=== PATIENT | male | born 1955 | race Caucasian/White ===

== ENCOUNTER 2017-08-28 05:36 | Outpatient (CLI) | payer BC ==
[~2017-08-28] VITALS: Ht 172.7 cm; Wt 90.7 kg
[~2017-08-28 05:36] MED LIST: LISI20TA PO; SIMV40TA4 PO
[2017-08-28] MEDS ORDERED: SIMV40TA4 PO (15:23)
== END 2017-08-28 15:24 ==
LOC: PREOP 05:36
PROVIDERS: ATTEND Surgery
DX: Z01.818 Encounter for other preprocedural examination (principal); K63.5 Polyp of colon

== ENCOUNTER 2017-09-04 09:23 | Day surgery (SDC) | payer BC ==
[~2017-09-04] VITALS: Ht 172.7 cm; Wt 90.7 kg
--- OUTSIDE RECORDS SUMMARY | 2017-09-04 09:38 | XMS REPORT ---
Author Author Yen Alvarado Organization [facility] Address [address] [place], [place] [id number] Care Team Providers Care Bowl Sander Name Role Phone Yen Alvarado PCP Unavailable Allergies and Adverse Reactions Name Reaction Notes NO KNOWN DRUG ALLERGIES Plan of Treatment Not available. Medications Active Name Start Date Estimated Completion Date SIG Comments lisinopril 20 mg oral tablet take 1 tablet (20 mg) by oral route once daily simvastatin 20 mg oral tablet take 1 tablet (20 mg) by oral route once daily in the evening Problem List Description Status Onset Hyperlipidemia Active Hypertension Active Vital Signs Date Time BP-Sys(mm[Hg] BP-Sheba(mm[Hg]) HR(bpm) RR(rpm) Temp WT HT HC BMI BSA BMI Percentile O2 Sat(%) 05/03/2016 1:46:00 PM 134 mmHg 72 mmHg 75 bpm 18 rpm 97.8 F 190.125 lbs 68 in 28.91 kg/m2 2.03 m2 98 % 05/13/2015 3:03:00 PM 124 mmHg 74 mmHg 71 bpm 18 rpm 96.7 F 195.5 lbs 68 in 29.7254 kg/m 2.0627 m 99 % 05/19/2014 9:56:00 AM 115 mmHg 82 mmHg 74 bpm 20 rpm 97.8 F 197 lbs 68 in 29.95 kg/m2 2.07 m2 94 % Social History Name Description Comments Tobacco Former smoker Alcohol rare History of Procedures Date Ordered Description Order Status 05/13/2015 3:13 PM URINALYSIS AUTO W/O SCOPE Reviewed 05/03/2016 2:13 PM URINALYSIS AUTO W/O SCOPE Reviewed 05/19/2014 10:00 AM URINALYSIS AUTO W/O SCOPE Reviewed Results Summary Data and Description Results 05/19/2014 10:00 AM Bilirub Ur Ql Strip negative Glucose Ur-sCnc negative Hgb Ur Ql Strip negative Ketones Ur Ql Strip negative Nitrite Ur Ql Strip negative pH Ur-LsCnc 5.5 Prot Ur Ql Strip 30 Sp Gr Ur Qn >=1.030 Urobilinogen Ur-mCnc 0.2 WBC Est Ur Ql Strip negative 05/13/2015 3:13 PM Clarity Ur clear Color Ur lt yellow Glucose Ur-sCnc neg Bilirub Ur Ql Strip neg Ketones Ur Ql Strip neg Sp Gr Ur Qn <=1.005 Hgb Ur Ql Strip beg pH Ur-LsCnc 6.0 Prot Ur Ql Strip neg Urobilinogen Ur-mCnc 0.2 E.U./dL Nitrite Ur Ql Strip neg WBC Est Ur Ql Strip neg 05/03/2016 2:13 PM Clarity Ur clear Color Ur yellow Glucose Ur-sCnc neg Bilirub Ur Ql Strip neg Ketones Ur Ql Strip neg Sp Gr Ur Qn 1.015 Hgb Ur Ql Strip neg pH Ur-LsCnc 6.0 Prot Ur Ql Strip neg Urobilinogen Ur-mCnc 0.2eu/dl Nitrite Ur Ql Strip neg WBC Est Ur Ql Strip neg History Of Immunizations Not available. 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
--- OUTSIDE RECORDS SUMMARY | 2017-09-04 09:38 | XMS REPORT ---
Author Author Yen Alvarado Organization [facility] Address [address] [place], [place] [id number] Care Team Providers Care Complaint Adjuster Name Role Phone Yen Alvarado PCP Unavailable [...] HC BMI BSA BMI Percentile O2 Sat(%) 05/13/2015 3:03:00 PM 124 mmHg 74 mmHg 71 bpm 18 rpm 96.7 F 195.5 lbs 68 in 29.73 kg/m2 2.06 m2 99 % 05/19/2014 9:56:00 AM 115 mmHg 82 mmHg 74 bpm 20 rpm 97.8 F 197 lbs 68 in 29.9534 kg/m 2.0706 m 94 % Social History Name Description Comments Tobacco Former smoker Alcohol rare History of Procedures Date Ordered Description Order Status 05/13/2015 3:13 PM URINALYSIS AUTO W/O SCOPE Reviewed 05/19/2014 [...] driving license) exam May 13 2015 3:06PM Payers Insurance Name Company Name Plan Name Plan Number Policy Number Policy Group Number Start Date [facility] Med Occupational Medicine [id number] N/A History of Encounters Visit Date Visit Type Provider 05/13/2015 Office visit Yen Alvarado APRN 05/19/2014 Office visit Ursula Allen APRN
--- OUTSIDE RECORDS SUMMARY | 2017-09-04 09:38 | XMS REPORT | Continuity of Care Document ---
Author Author [facility] Organization [facility] Address Unknown Phone Unavailable Allergies Active Description Code Type Severity Reaction Onset Reported/Identified Relationship to Patient Clinical Status Yes No Known Medication Allergies Drug N/A N/A Yes No Known Drug Allergies [id number] Drug Allergy Unknown N/A 11/10/2013 Medications There is no data. Problems There is no data. Procedures There is no data. Results There is no data. Encounters ACCT No. Visit Date/Time Discharge Status Pt. Type Provider Facility Loc./Unit Complaint [id number] 08/28/2017 05:36:00 08/28/2017 15:24:00 DIS Outpatient BELKIS FUENTES DO [facility] PREOP COLONOSCOPY [id number] 11/11/2013 11:44:00 11/11/2013 17:15:00 DIS Outpatient [id number] 11/06/2013 07:25:00 11/06/2013 23:59:59 CLS Outpatient [id number] 09/04/2017 11:15:00 PEN Preadmit BELKIS FUENTES DO [facility] ENDO POLYP [id number] 02/13/2017 16:35:04 02/13/2017 23:59:59 DIS Outpatient KELLEY PARRA [facility] KACEY RAD [id number] 02/13/2017 16:15:00 02/13/2017 23:59:59 DIS Outpatient KELLEY PARRA [facility] Ortho [id number] 01/30/2017 15:48:05 01/30/2017 23:59:59 DIS Outpatient KELLEY PARRA [facility] KACEY RAD [id number] 01/30/2017 15:45:25 01/30/2017 23:59:59 DIS Outpatient KELLEY PARRA [facility] Ortho [id number] 01/09/2017 15:50:05 01/09/2017 23:59:59 DIS Outpatient KELLEY PARRA [facility] KACEY RAD [id number] 01/09/2017 15:48:25 01/09/2017 23:59:59 DIS Outpatient ARKELLEY Rebollar [facility] Ortho [id number] 12/28/2016 13:00:00 12/28/2016 23:59:59 DIS Outpatient ARKELLEY Rebollar [facility] Ortho [id number] 12/28/2016 10:47:55 12/28/2016 23:59:59 [facility] Surgery L 5th finger pinning; lac repair [id number] 12/27/2016 16:09:46 12/27/2016 23:59:59 DIS Outpatient BELKIS DAVIS [facility] KACEY RAD [id number] 12/27/2016 15:45:26 12/27/2016 23:59:59 DIS Outpatient BELKIS DAVIS [facility] Ortho [id number] 12/25/2016 16:44:00 12/25/2016 23:59:59 CLS Emergency [facility] ED finger injury [id number] 01/19/2017 10:15:20 Document Registration [id number] 04/30/2017 15:32:24 04/30/2017 23:59:59 CLS Outpatient Yen Alvarado [id number] 05/03/2016 14:39:37 05/03/2016 23:59:59 CLS Outpatient Yen Alvarado [id number] 05/13/2015 15:51:44 05/13/2015 23:59:59 CLS Outpatient Yen Alvarado [id number] 05/19/2014 10:32:16 05/19/2014 23:59:59 CLS Outpatient Ursula Allen
--- OUTSIDE RECORDS SUMMARY | 2017-09-04 09:38 | XMS REPORT ---
Author Yen Mullen Organization [facility] Address [address] [place], [place] [address] Care Team Providers Care Fitness Center Attendant Name Role Phone Yen Alvarado PCP Unavailable [...] HC BMI BSA BMI Percentile O2 Sat(%) 04/30/2017 2:48:00 PM 124 mmHg 76 mmHg 75 bpm 18 rpm 97.4 F 201 lbs 68 in 30.56 kg/m2 2.09 m2 97 % 05/03/2016 1:46:00 PM 134 mmHg 72 mmHg 75 bpm 18 rpm 97.8 F 190.125 lbs 68 in 28.9081 kg/m 2.0341 m 98 % 05/13/2015 3:03:00 PM 124 mmHg [...] 2:13 PM URINALYSIS AUTO W/O SCOPE Reviewed 04/30/2017 2:55 PM URINALYSIS AUTO W/O SCOPE Reviewed 05/19/2014 10:00 AM URINALYSIS AUTO W/O SCOPE Reviewed Results Summary Date and Description Results 05/19/2014 10:00 AM Bilirub [...] neg WBC Est Ur Ql Strip neg 04/30/2017 2:55 PM Color Ur Lt Yellow Glucose Ur-sCnc Neg Bilirub Ur Ql Strip nEg Ketones Ur Ql Strip Neg Sp Gr Ur Qn 1.005 Hgb Ur Ql Strip Neg pH Ur-LsCnc 5.5 Prot Ur Ql Strip Neg Urobilinogen Ur-mCnc 0.2 Nitrite Ur Ql Strip Neg WBC Est Ur Ql Strip Neg History Of Immunizations Not available. 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 Occupational Medicine [id number] N/A History of Encounters Visit Date Visit Type Provider 04/30/2017 Office visit Yen Alvarado APRN 05/03/2016 Office visit Yen Alvarado APRN 05/13/2015 Office visit Yen Alvarado APRN 05/19/2014 Office visit Ursula Allen APRN
[2017-09-04 09:40] VITALS: BP 134/83
[2017-09-04] MEDS ORDERED: LACTATED RINGERS 1,000 ML IV PRN (09:45)
[2017-09-04] MEDS ORDERED: MIDAZOLAM 2 MG/2 ML (VERSED) VIAL ONE (09:56)
[2017-09-04] MEDS ORDERED: PROPOFOL INJECTION 50 ML IV ONE (09:56)
--- NOTE | 2017-09-04 10:16 | Progress Note-Pre Operative ---
Pre-Operative Progress Note H&P Reviewed The H&P was reviewed, patient examined and no changes noted. Date Seen by Provider: Sep 04, 2017 Time Seen by Provider: 10:16 Date H&P Reviewed: Sep 04, 2017 Time H&P Reviewed: 10:16 Pre-Operative Diagnosis: history polyps BELKIS FUENTES DO Sep 04, 2017 10:16
[2017-09-04] MEDS ORDERED: proPOfol 200 MG/20 ML (DIPRIVAN) VIAL IV ONE (10:42)
--- NOTE | 2017-09-04 10:57 | Progress Note-Post Operative ---
Post-Operative Progess Note Surgeon (s)/Director Of Assessing (s) Surgeon BELKIS FUENTES DO Director Of Assessing: na Pre-Operative Diagnosis history polyps Post-Operative Diagnosis rectal polyp Procedure & Operative Findings Date of Procedure 09/04/17 Procedure Performed/Findings colonoscopy c snare polypectomy and adrian inking of rectal polyp Anesthesia Type per title i assistant Estimated Blood Loss Estimated blood loss (mL): none Specimens/Packing Specimens Removed rectal polyp BELKIS FUENTES DO Sep 04, 2017 10:56
--- NOTE | 2017-09-04 10:59 | Discharge Inst-Simple/Standard ---
Discharge Inst-Standard Patient Instructions/Follow Up Plan of Care/Instructions/FU: 2 weeks Priya Activity as Tolerated: Yes Discharge Diet: Regular Diet BELKIS FUENTES DO Sep 04, 2017 10:59
[2017-09-04 11:10] VITALS: BP 116/81
[2017-09-04 11:40] VITALS: BP 113/84
[2017-09-04 11:55] VITALS: BP 113/84
--- NOTE | 2017-09-04 11:59 | Anesthesia-General Post-Op ---
MAC Patient Condition Mental Status/LOC: Same as Preop Cardiovascular: Satisfactory Nausea/Vomiting: Absent Respiratory: Satisfactory Pain: Controlled Complications: Absent Post Op Complications Complications None Follow Up Care/Instructions Patient Instructions None needed. Anesthesiology Discharge Order Discharge Order Patient is doing well, no complaints, stable vital signs, no apparent adverse anesthesia problems. No complications reported per nursing. MAUREEN TY CRNA Sep 04, 2017 11:59
--- NOTE | 2017-09-04 16:45 | OPERATIVE REPORT ---
DATE OF SERVICE: 09/04/2017 PREOPERATIVE DIAGNOSIS: History of polyps. POSTOPERATIVE DIAGNOSIS: Rectal polyp. PROCEDURE: Colonoscopy with snare polypectomy and Christina inking of rectal polyp. SURGEON: Belkis Powers DO. ANESTHESIA: Per SHIPPING AND RECEIVING OPERATOR. ESTIMATED BLOOD LOSS: None. COMPLICATIONS: None. INDICATIONS: The patient is a 62-year-old male with a history of polyp. He understands risks and benefits of procedure and wished to proceed with the procedure. Consent was signed on the chart. DESCRIPTION OF PROCEDURE: The patient was taken to the endoscopy suite, placed in left lateral recumbent position. Timeout was performed. Digital rectal exam was performed. There were no palpable polyps, masses or ulcerations. Scope was inserted in the rectum and advanced all the way to the cecum with minimal difficulty. Prep was adequate. There were no polyps, masses or ulcerations in the cecum, ascending, transverse, descending and sigmoid colon. Once in the rectum, a little larger polyp was present in the rectum. A snare polypectomy was performed. The area was inked with 3 mL of Christina inking, one in three different locations just distal to the polyp. The scope was then slowly retracted and inserted multiple times and no other pathology was noted. Then, the scope was slowly retracted until completely removed. The patient tolerated procedure well without complications and taken to recovery room in stable condition. RECOMMENDATIONS: The patient to follow up in 2 weeks to discuss pathology results. The patient will also need repeat colonoscopy in 6 months for reevaluation. If he has any problems prior to that, he should be reevaluated at that time. Job ID: [id number] DocumentID: [id number] Dictated Date: 09/04/2017 11:01:54 Human Resources Operations Director Date: 09/04/2017 16:44:25 Dictated By: BELKIS POWERS DO
== END 2017-09-04 11:55 | disposition home or self-care (01) ==
LOC: ENDO 09:23
PROVIDERS: ATTEND Surgery
DX: Z12.11 Encounter for screening for malignant neoplasm of colon (principal); D12.8 Benign neoplasm of rectum; Z86.010 Personal history of colon polyps; I10 Essential (primary) hypertension; E78.5 Hyperlipidemia, unspecified; E66.9 Obesity, unspecified; Z68.30 Body mass index [BMI] 30.0-30.9, adult; Z79.899 Other long term (current) drug therapy

== ENCOUNTER 2018-04-09 06:12 | Outpatient (CLI) | payer BC ==
[~2018-04-09] VITALS: Ht 172.7 cm; Wt 90.7 kg
== END 2018-04-09 14:41 | disposition home or self-care (01) ==
LOC: PREOP 06:12
PROVIDERS: ATTEND Surgery
DX: Z01.818 Encounter for other preprocedural examination (principal)

== ENCOUNTER → 2018-04-16 | Day surgery (SDC) | payer BC ==
[~2018-04-16] VITALS: Ht 172.7 cm; Wt 90.7 kg
[~2018-04-16] MED LIST changes: +LACTATED RINGERS 1,000 ML IV ONE; +LACTATED RINGERS 1,000 ML IV STA; +MIDAZOLAM 2 MG/2 ML (VERSED) VIAL ONE; +proPOfol 200 MG/20 ML (DIPRIVAN) VIAL IV ONE
--- OUTSIDE RECORDS SUMMARY | 2018-04-16 12:27 | XMS REPORT | Continuity of Care Document ---
Author Author [facility] Address Unknown Phone Unavailable Allergies Active Description Code Type Severity Reaction Onset Reported/Identified Relationship to Patient Clinical Status Yes No Known Medication Allergies Drug N/A N/A Yes NO KNOWN DRUG ALLERGIES UNKNOWN NO KNOWN DRUG ALLERG Yes No Known Drug Allergies [id number] Drug Allergy Unknown N/A 04/09/2018 Medications Medication Packaging Start Date Stop Date Route Dosage Sig ORPHENADRINE INJ 60 MG/2CC (NORFLEX) MG 11/27/2017 11/27/2017 [id number]&2305 Problems Date Dx Coded Attending Type Code Diagnosis Diagnosed By 11/11/2013 BELKIS UFENTES DO Ot 569.0 ANAL RECTAL POLYP 11/11/2013 BELKIS FUENTES DO Ot 569.3 RECTAL ANAL HEMORRHAGE 08/15/2017 Christie, Ella W 272.8 OTHER DISORDERS OF LIPOID METABOLISM 08/15/2017 Christie, Ella W 401.9 UNSPECIFIED ESSENTIAL HYPERTENSION 08/15/2017 Christie, Ella W 477 ALLERGIC RHINITIS 08/15/2017 Christie, Ella W E78.5 HYPERLIPIDEMIA, UNSPECIFIED 08/15/2017 Christie, Ella W I10 ESSENTIAL (PRIMARY) HYPERTENSION 08/15/2017 Christie, Ella W J30.9 ALLERGIC RHINITIS, UNSPECIFIED 08/15/2017 Christie, Ella W 272.8 OTHER DISORDERS OF LIPOID METABOLISM 08/15/2017 Christie, Ella W 401.9 UNSPECIFIED ESSENTIAL HYPERTENSION 08/15/2017 Christie, Ella W 477 ALLERGIC RHINITIS 08/15/2017 Christie, Ella W E78.5 HYPERLIPIDEMIA, UNSPECIFIED 08/15/2017 Christie, Ella W I10 ESSENTIAL (PRIMARY) HYPERTENSION 08/15/2017 Christie, Ella W J30.9 ALLERGIC RHINITIS, UNSPECIFIED 08/28/2017 BELKIS FUENTES DO Ot K63.5 POLYP OF COLON 08/28/2017 BELKIS FUENTES DO Ot Z01.818 ENCOUNTER FOR OTHER PREPROCEDURAL EXAMIN 09/03/2017 BELKIS FUENTES DO Ot V72.84 EXAM PRE-OPERATIVE NOS 09/04/2017 BELKIS FUENTES DO Ot D12.8 BENIGN NEOPLASM OF RECTUM 09/04/2017 BELKIS FUENTES DO D Ot E66.9 OBESITY, UNSPECIFIED 09/04/2017 FUENTES DO BELKIS D Ot E78.5 HYPERLIPIDEMIA, UNSPECIFIED 09/04/2017 GINA MURCIA BELKIS D Ot I10 ESSENTIAL (PRIMARY) HYPERTENSION 09/04/2017 FUENTES NEEL MURCIATT D Ot Z12.11 ENCOUNTER FOR SCREENING FOR MALIGNANT NE 09/04/2017 FUENTES BELKIS MURCIA D Ot Z68.30 BODY MASS INDEX (BMI) 30.0-30.9, ADULT 09/04/2017 BELKIS FUENTES DO D Ot Z79.899 OTHER FPC (CURRENT) DRUG THERAPY 09/04/2017 FUENTES NEEL MURCIATT D Ot Z86.010 PERSONAL HISTORY OF COLONIC POLYPS 09/06/2017 NEEL FUENTES DONOE Lopez Ot D12.8 BENIGN NEOPLASM OF RECTUM 09/06/2017 NEEL FUENTES DOTT D Ot E66.9 OBESITY, UNSPECIFIED 09/06/2017 FUENTES BELKIS MURCIA D Ot E78.5 HYPERLIPIDEMIA, UNSPECIFIED 09/06/2017 FUENTES NEEL MURCIATT D Ot I10 ESSENTIAL (PRIMARY) HYPERTENSION 09/06/2017 FUENTES NEEL MURCIATT D Ot Z12.11 ENCOUNTER FOR SCREENING FOR MALIGNANT NE 09/06/2017 FUENTES BELKIS MURCIA D Ot Z68.30 BODY MASS INDEX (BMI) 30.0-30.9, ADULT 09/06/2017 BELKIS FUENTES DO D Ot Z79.899 OTHER THREADING MACHINE OPERATOR (CURRENT) DRUG THERAPY 09/06/[facility] Z86.010 PERSONAL HISTORY OF COLONIC POLYPS 11/28/2017 Michael Davila 564.00 CONSTIPATION, UNSPECIFIED 11/28/2017 Michael Davila 807.02 CLOSED FRACTURE OF TWO RIBS 11/28/2017 Michael Davila K59.00 CONSTIPATION, UNSPECIFIED 11/28/2017 Michael Davila S22.42XA MULTIPLE FRACTURES OF RIBS, LEFT SIDE, INIT FOR CLOS FX 03/22/2018 Ella Soriano W 272.4 OTHER AND UNSPECIFIED HYPERLIPIDEMIA 03/22/2018 Ella Soriano W 401.0 MALIGNANT ESSENTIAL HYPERTENSION 03/22/2018 Ella Soriano W E78.5 HYPERLIPIDEMIA, UNSPECIFIED 03/22/2018 Ella Soriano W I10 ESSENTIAL (PRIMARY) HYPERTENSION 03/22/2018 Elal Soriano W 272.4 OTHER AND UNSPECIFIED HYPERLIPIDEMIA 03/22/2018 Ella Soriano W 401.0 MALIGNANT ESSENTIAL HYPERTENSION 03/22/2018 Ella Soriano W E78.5 HYPERLIPIDEMIA, UNSPECIFIED 03/22/2018 Ella Soriano I10 ESSENTIAL (PRIMARY) HYPERTENSION 04/09/2018 BELKIS FUENTES DO Ot Z01.818 ENCOUNTER FOR OTHER PREPROCEDURAL EXAMIN Procedures There is no data. Results Test Result Range PSA Yearly Screen - 10/04/16 08:20 PSA TOTAL 1.4 ng/mL 0.0-4.0 Thyroid Stimulating Hormone - 10/04/16 08:20 TSH 1.52 mIU/mL 0.32-5.00 Comprehensive Metabolic Panel - 08/15/17 08:20 Albumin 4.4 g/dL 3.6-5.1 ALP 74 U/L 35-130 ALT 27 U/L 6-45 Anion Gap 16 6-14 AST 21 U/L 2-40 BUN 15 mg/dL 5-25 Calcium 9.6 mg/dL 8.3-10.4 Chloride 104 mmol/L 95-114 CO2 24 mEq/L 22-33 Creat 0.84 mg/dL 0.50-1.50 eGFR 92 mL/min/1.73m2 >59 Globulin 2.8 g/dL 2.3-3.5 Glucose 88 mg/dL 70-110 Osmo 287 280-295 Potassium 4.6 mmol/L 3.5-5.3 Sodium 139 mmol/L 134-148 TBil 0.7 mg/dL 0.2-1.2 TP 7.2 g/dL 6.0-8.3 Lipid Panel - 08/15/17 08:20 C/HDL 3.8 3.7-6.7 Cholesterol 173 mg/dL 100-240 HDL 46 mg/dL 30-85 LDL-Calculated 100 mg/dL 0-100 Trig 136 mg/dL 35-160 VLDL 27 mg/dL 0-42 Lipid Panel - 03/22/18 07:45 C/HDL 3.5 3.7-6.7 Cholesterol 159 mg/dL 100-240 HDL 46 mg/dL 30-85 LDL-Calculated 91 mg/dL 0-100 Trig 112 mg/dL 35-160 VLDL 22 mg/dL 0-42 Encounters ACCT No. Visit Date/Time Discharge Status Pt. Type Provider Facility Loc./Unit Complaint [id number] 04/30/2017 15:32:24 04/30/2017 23:59:59 CLS Outpatient Yen Alvarado [id number] 05/03/2016 14:39:37 05/03/2016 23:59:59 CLS Outpatient Yen Alvarado [id number] 05/13/2015 15:51:44 05/13/2015 23:59:59 CLS Outpatient Yen Alvarado [id number] 05/19/2014 10:32:16 05/19/2014 23:59:59 CLS Outpatient Ursula Allen [id number] 04/24/2014 09:03:20 04/24/2014 09:03:20 DIS Outpatient [id number] 03/22/2018 08:30:00 03/22/2018 23:59:00 DIS Outpatient Ella Soriano [id number] 11/27/2017 23:02:00 11/28/2017 00:30:00 [id number] 08/15/2017 08:23:00 08/15/2017 23:59:00 DIS Outpatient Ella Soriano [id number] 10/04/2016 10:59:00 10/04/2016 23:59:00 DIS Outpatient Ivan Caldera [id number] 11/27/2017 23:06:52 Document Registration [id number] 04/09/2018 06:12:00 04/09/2018 14:41:00 DIS Outpatient BELKIS FUENTES DO [facility] PREOP COLONOSCOPY [id number] 09/04/2017 09:23:00 09/04/2017 11:55:00 DIS Outpatient BELKIS FUENTES DO [facility] ENDO POLYP [id number] 08/28/2017 05:36:00 08/28/2017 15:24:00 DIS Outpatient BELKIS FUENTES DO [facility] PREOP COLONOSCOPY [id number] 11/11/2013 11:44:00 11/11/2013 17:15:00 DIS [id number] 11/06/2013 07:25:00 11/06/2013 23:59:59 CLS Outpatient BELKIS FUENTES DO [facility] PREOP BLOOD IN STOOLS [id number] 04/16/2018 12:08:00 ACT Outpatient BELKIS FUENTES DO Jessica [facility] ENDO SCREENING/HX POLYPS [id number] 02/13/2017 16:35:04 02/13/2017 23:59:59 DIS Outpatient ALKELLEY Rebollar [facility] KACEY RAD [id number] 02/13/2017 16:15:00 02/13/2017 23:59:59 DIS Outpatient KELLEY PARRA [facility]o [id number] 01/30/2017 15:48:05 01/30/2017 23:59:59 DIS Outpatient KELLEY PARRA [facility] KACEY RAD [id number] 01/30/2017 15:45:25 01/30/2017 23:59:59 DIS Outpatient KELLEY PARRA [facility] [id number] 01/09/2017 15:50:05 01/09/2017 23:59:59 DIS Outpatient KELLEY PARRA [facility] KACEY RAD [id number] 01/09/2017 15:48:25 01/09/2017 23:59:59 DIS Outpatient KELLEY PARRA [facility] [id number] 12/28/2016 13:00:00 12/28/2016 23:59:59 DIS Outpatient KELLEY PARRA [facility] [id number] 12/28/2016 10:47:55 12/28/2016 23:59:59 CLS Preadmit KELLEY PARRA [facility] KACEY Surgery L 5th finger pinning; lac repair [id number] 12/27/2016 16:09:46 12/27/2016 23:59:59 DIS Outpatient BELKIS DAVIS [facility] KACEY RAD [id number] 12/27/2016 15:45:26 12/27/2016 23:59:59 DIS Outpatient BELIKS DAVIS [facility] [id number] 12/25/2016 16:44:00 12/25/2016 23:59:59 CLS Emergency [facility] ED finger injury [id number] 01/19/2017 10:15:20 Document Registration
[2018-04-16 12:36] VITALS: BP 142/96
--- NOTE | 2018-04-16 13:15 | Progress Note-Pre Operative ---
Pre-Operative Progress Note H&P Reviewed The H&P was reviewed, patient examined and no changes noted. Date Seen by Provider: Apr 16, 2018 Time Seen by Provider: 13:14 Date H&P Reviewed: Apr 16, 2018 Time H&P Reviewed: 13:15 Pre-Operative Diagnosis: history colon polyps BELKIS FUENTES DO Apr 16, 2018 13:15
[2018-04-16 14:00] VITALS: BP 131/72
[2018-04-16 14:25] VITALS: BP 132/91
--- NOTE | 2018-04-16 15:22 | Anesthesia-General Post-Op ---
MAC Patient Condition Mental Status/LOC: Same as Preop Cardiovascular: Satisfactory Nausea/Vomiting: Absent Respiratory: Satisfactory Pain: Controlled Complications: Absent Post Op Complications Complications None Follow Up Care/Instructions Patient Instructions None needed. Anesthesiology Discharge Order Discharge Order Patient is doing well, no complaints, stable vital signs, no apparent adverse anesthesia problems. No complications reported per nursing. LONNIE LEAHY CRNA Apr 16, 2018 15:22
--- NOTE | 2018-04-16 16:15 | OPERATIVE REPORT ---
DATE OF SERVICE: 04/16/2018 PREOPERATIVE DIAGNOSIS: History of colon polyps. POSTOPERATIVE DIAGNOSIS: Mucosal change in the sigmoid colon and anorectal junction. PROCEDURES PERFORMED: Colonoscopy with a hot biopsy, mucosal change sigmoid and a cold biopsy anorectal junction. SURGEON: Belkis Powers DO. ANESTHESIA: Per MARKETING AND PUBLIC RELATIONS MANAGER. ESTIMATED BLOOD LOSS: None. COMPLICATIONS: None. INDICATIONS: The patient is a 63-year-old male with history of polyps. He understands risks and benefits of the procedure and wished to proceed with procedure. Consent was signed on the chart. DESCRIPTION OF PROCEDURE: The patient was taken to the endoscopy suite and placed in a left lateral recumbent position. Timeout was performed. Digital rectal exam was performed. There were no palpable polyps, masses or ulcerations. Scope was inserted in the rectum and advanced all the way to the cecum with minimal difficulty. There were no polyps, masses or ulcerations in the cecum, ascending, transverse or descending colon. In the distal sigmoid colon, there was some slight mucosal change present. Hot biopsy of this was performed, scope was continuously retracted back into the rectum where it was also retroflexed. There were no polyps, masses or ulcerations. There was a slight mucosal change right at the anorectal junction and difficult to tell if this is, maybe, questionable from the prep or some other process. A biopsy of this area was obtained. Scope was then slowly retracted until completely removed. The patient tolerated the procedure well without any complications and taken to the recovery room in stable condition. RECOMMENDATIONS: The patient will need to follow up on biopsy results in 2 weeks. Further recommendations pending this. I would recommend repeat colonoscopy in three years otherwise. Job ID: [id number] DocumentID: [id number] Dictated Date: 04/16/2018 15:44:59 Blind Hooker Date: 04/16/2018 16:14:36 Dictated By: BELKIS POWERS DO
== END | disposition home or self-care (01) ==
LOC: ENDO 12:08
PROVIDERS: ATTEND Surgery
DX: Z09 Encounter for follow-up examination after completed treatment for conditions other than malignant neoplasm (principal); K63.5 Polyp of colon; Z86.010 Personal history of colon polyps; I10 Essential (primary) hypertension; E66.9 Obesity, unspecified; Z68.30 Body mass index [BMI] 30.0-30.9, adult; Z79.899 Other long term (current) drug therapy

== ENCOUNTER 2022-09-13 05:39 | Outpatient (CLI) | payer BC ==
[~2022-09-13] VITALS: Ht 172.7 cm; Wt 87.1 kg
[~2022-09-13 05:39] MED LIST changes: -LACTATED RINGERS 1,000 ML IV ONE; -LACTATED RINGERS 1,000 ML IV STA; -MIDAZOLAM 2 MG/2 ML (VERSED) VIAL ONE; +SIMV40TA25 PO; -proPOfol 200 MG/20 ML (DIPRIVAN) VIAL IV ONE
[2022-09-15] MEDS ORDERED: [UNRECOGNIZED DRUG - CODE] MC (11:20)
== END 2022-09-15 13:58 | disposition home or self-care (01) ==
LOC: PREOP 05:39
PROVIDERS: ATTEND Surgery
DX: Z01.818 Encounter for other preprocedural examination (principal)

== ENCOUNTER 2022-09-26 11:25 | Day surgery (SDC) | payer BC ==
[~2022-09-26] VITALS: Ht 172.7 cm; Wt 87.1 kg
[~2022-09-26 11:25] MED LIST changes: +[UNRECOGNIZED DRUG - CODE] MC
[2022-09-26] MEDS ORDERED: LACTATED RINGERS 1,000 ML IV STA (11:26)
[2022-09-26 11:55] VITALS: BP 144/97
[2022-09-26] MEDS ORDERED: PROPOFOL INJECTION 50 ML IV ONE (13:18)
[2022-09-26] MEDS ORDERED: ONDANSETRON 4 MG/2 ML (SDV) Z0FRAN ONE (14:13)
--- NOTE | 2022-09-26 14:33 | Anesthesia-General Post-Op ---
MAC Patient Condition Mental Status/LOC: Same as Preop Cardiovascular: Satisfactory Nausea/Vomiting: Absent Respiratory: Satisfactory Pain: Controlled Complications: Absent Post Op Complications Complications None Follow Up Care/Instructions Patient Instructions None needed. Anesthesiology Discharge Order Discharge Order Patient is doing well, no complaints, stable vital signs, no apparent adverse anesthesia problems. No complications reported per nursing. LONNIE LEAHY CRNA Sep 26, 2022 14:33
--- NOTE | 2022-09-26 14:33 | Progress Note-Post Operative ---
Post-Operative Progess Note Surgeon (s)/[employer] Technical Lead (s) Surgeon BELKIS FUENTES DO [employer] Technical Lead: n/a Pre-Operative Diagnosis history colon polyps, screening colonoscopy Post-Operative Diagnosis colon polyps Procedure & Operative Findings Date of Procedure 09/26/22 Procedure Performed/Findings colonoscopy with hot biopsy polypectomy x1 Anesthesia Type per stave log cut off saw operator Estimated Blood Loss Estimated blood loss (mL): none Specimens/Packing Specimens Removed colon polyp BELKIS FUENTES DO Sep 26, 2022 14:33
[2022-09-26 14:35] VITALS: BP 100/60
--- NOTE | 2022-09-26 14:35 | Discharge Inst-Simple/Standard ---
Discharge Inst-Standard Reconcile Patient Problems Problems Reviewed?: Yes Patient Instructions/Follow Up Plan of Care/Instructions/FU: F/u with Dr. Powers in 2 weeks Activity as Tolerated: Yes Discharge Diet: No Restrictions, Regular Diet BELKIS POWERS DO Sep 26, 2022 14:35
[2022-09-26 14:40] VITALS: BP 115/73
[2022-09-26 15:03] VITALS: BP 115/73
--- NOTE | 2022-09-26 22:27 | OPERATIVE REPORT ---
DATE OF SERVICE: 09/26/2022 PREOPERATIVE DIAGNOSIS: History of colon polyps. POSTOPERATIVE DIAGNOSIS: Ascending colon polyp. PROCEDURE: Colonoscopy with hot biopsy polypectomy x1. SURGEON: Belkis Powers DO ANESTHESIA: Per BUSINESS CONTINUITY STRATEGY DIRECTOR. ESTIMATED BLOOD LOSS: None. COMPLICATIONS: None. INDICATIONS: The patient is a 67-year-old male with a history of colon polyps. He understands risks and benefits of procedure and wishes to proceed. Consent was signed in chart. DESCRIPTION OF PROCEDURE: The patient was taken to endoscopy suite, placed in left lateral recumbent position. Timeout was performed. Digital rectal exam was performed. No palpable polyps, masses or ulcerations. Scope was inserted in the rectum and advanced all the way to the cecum with minimal difficulty. Prep was adequate with irrigation and suction. No polyps, masses or ulcerations in the cecum. In the ascending colon, right near the cecum a polyp was present, which hot biopsy polypectomy was performed. Scope was then slowly retracted back. No polyps, masses or ulcerations within the remainder of the ascending, transverse, descending and sigmoid colon. Once in the rectum, scope was retroflexed noting no other pathology. Scope was returned to its normal position, slowly withdrawn until completely removed. The patient tolerated the procedure well without any complications, taken to recovery room in stable condition. RECOMMENDATIONS: The patient will need repeat colonoscopy in 5 years if benefits outweigh the risks. Any issues before that, be seen at that time. The patient will follow up in 2 weeks to discuss pathology results. Job ID: [id number] DocumentID: [id number] Dictated Date: 09/26/2022 14:35:02 Review Appraiser Date: 09/26/2022 22:25:00 Dictated By: BELKIS POWERS DO
== END 2022-09-26 15:15 | disposition home or self-care (01) ==
LOC: ENDO 11:25
PROVIDERS: ATTEND Surgery
DX: Z12.11 Encounter for screening for malignant neoplasm of colon (principal); K63.5 Polyp of colon; Z95.0 Presence of cardiac pacemaker